=== PATIENT | male | born 1980 | race Caucasian/White ===

== ENCOUNTER 2016-11-23 12:12 | Emergency (ER) | payer MEDICAID, OTHER ==
[2016-11-23 12:16] VITALS: BP 117/78; PULSE 92; RESP 16; TEMP 98.7; O2SAT 98
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
== END 2016-11-23 15:00 | disposition home or self-care (01) ==
LOC: H.ER 12:12
DX: Z04.1 Encounter for examination and observation following transport accident (principal); T88.7XXA Unspecified adverse effect of drug or medicament, initial encounter

== ENCOUNTER 2018-04-18 06:37 | Emergency (ER) | payer MEDICAID, OTHER ==
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
[2018-04-18 07:57] VITALS: BP 128/76; PULSE 78; RESP 19; TEMP 97.5; O2SAT 98
== END 2018-04-18 07:58 | disposition home or self-care (01) ==
LOC: H.ER 06:37
DX: S01.81XA Laceration without foreign body of other part of head, initial encounter (principal); W22.8XXA Striking against or struck by other objects, initial encounter; Y92.89 Other specified places as the place of occurrence of the external cause